=== PATIENT | male | born 1955 | race Caucasian/White ===

== ENCOUNTER 2020-05-16 11:29 | Emergency (ER) | payer MEDICARE ==
[~2020-05-16] VITALS: Ht 175 cm; Wt 86.1 kg
[2020-05-16] MEDS ORDERED: LACTATED RINGERS 1,000 ML IV ONE (11:37)
[2020-05-16] MEDS ORDERED: ASPIRIN 81 MG CHEW (CHILDREN'S ASA) PO ONE (11:45)
[2020-05-16] MEDS: NITROGLYCERIN 0.4 MG SL TABS BTL 25'S SL PRN ×3 (11:50→12:19)
[2020-05-16 11:55] LABS: BASOPHILS % (AUTO) 0 % (0-10); EOSINOPHILS # (AUTO) 0.1 10^3/uL (0.0-0.3); EOSINOPHILS % (AUTO) 0 % (0-10); HEMATOCRIT 42 % (40-54); HEMOGLOBIN 13.8 g/dL (13.3-17.7); LYMPHOCYTES # (AUTO) 1.7 10^3/uL (1.0-4.0); LYMPHOCYTES % (AUTO) 11 % (12-44); MEAN CORPUSCULAR HEMOGLOBIN 30 pg (25-34); MEAN CORPUSCULAR HGB CONC 33 g/dL (32-36); MEAN CORPUSCULAR VOLUME 89 fL (80-99); MEAN PLATELET VOLUME 9.2 fL (9.0-12.2); MONOCYTES # (AUTO) 0.8 10^3/uL (0.0-1.0); MONOCYTES % (AUTO) 5 % (0-12); NEUTROPHILS # (AUTO) 12.8 10^3/uL (1.8-7.8); NEUTROPHILS % (AUTO) 83 % (42-75); PLATELET COUNT 295 10^3/uL (130-400); WHITE BLOOD COUNT 15.5 10^3/uL (4.3-11.0)
[2020-05-16] MEDS ORDERED: ONDANSETRON 4 MG/2 ML (SDV) Z0FRAN ONE (11:55)
[2020-05-16] MEDS ORDERED: ONDANSETRON 4 MG/2 ML (SDV) Z0FRAN IVP ONE (12:00)
[2020-05-16 12:05] LABS: ALBUMIN 4.2 GM/DL (3.2-4.5); INR 1.1 (0.8-1.4); PROTHROMBIN TIME PATIENT 14.1 SEC (12.2-14.7)
[2020-05-16 12:06] LABS: CHLORIDE 101 MMOL/L (98-107); POTASSIUM 4.1 MMOL/L (3.6-5.0); SODIUM 137 MMOL/L (135-145)
[2020-05-16 12:08] LABS: GLUCOSE 263 MG/DL (70-105)
[2020-05-16 12:09] LABS: CARBON DIOXIDE 22 MMOL/L (21-32)
[2020-05-16 12:10] LABS: BILIRUBIN,TOTAL 0.5 MG/DL (0.1-1.0)
[2020-05-16 12:11] LABS: ALKALINE PHOSPHATASE 39 U/L (40-136)
[2020-05-16 12:12] LABS: CREATININE SERUM 1.08 MG/DL (0.60-1.30); GFR ESTIMATED > 60
[2020-05-16 12:13] LABS: BUN/CREATININE RATIO 24
[2020-05-16 12:14] LABS: ALANINE AMINOTRANSFERASE 25 U/L (0-55)
[2020-05-16 12:15] LABS: MAGNESIUM 1.6 MG/DL (1.6-2.4)
[2020-05-16 12:21] LABS: LYMPHOCYTES % (MANUAL) 7 %; MONOCYTES % (MANUAL) 6 %; NEUTROPHILS % (MANUAL) 87 %; RBC MORPH NORMAL
--- NOTE | 2020-05-16 12:40 | NUR ---
PPatient awake and alert, radiology in room. Pt denies any needs. Call light in reach.
[2020-05-16] MEDS ORDERED: ATOR40TA PO (12:50)
[2020-05-16] MEDS ORDERED: MULT-1136 PO (12:50)
[2020-05-16] MEDS ORDERED: FENO48TA16 PO (12:50)
[2020-05-16] MEDS ORDERED: ASPI-999 PO (12:50)
[2020-05-16] MEDS ORDERED: METF-399 PO (12:50)
[2020-05-16] MEDS ORDERED: LEVO100T PO (12:50)
[2020-05-16] MEDS ORDERED: CLOP75TA69 PO (12:50)
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
[2020-05-16] MEDS ORDERED: HEParin 1000 UNIT/ML (10ML VIAL) FOR BOLUS IV ONE (13:27)
[2020-05-16] MEDS ORDERED: morphine INJ 10 MG/ML 1ML (SYR OR VIAL) IVP STA (13:27)
[2020-05-16] MEDS ORDERED: HEParin DRIP 25000 UNIT/500ML 500 ML IV ONE (13:27)
[2020-05-16] MEDS ORDERED: NITROGLYCERIN 2% OINT 1 GM UNIT DOSE PACKET TOP ONE (13:30)
--- NOTE | 2020-05-16 13:36 | Diagnostic Imaging Report ---
PATIENT HISTORY: Chest pain. TECHNIQUE: Single frontal view of the chest. COMPARISON: None FINDINGS: The lung volumes are normal. No focal consolidation is seen. No large pleural effusion or pneumothorax is seen. The cardiomediastinal silhouette is normal in size and contour. No acute osseous abnormality is seen. IMPRESSION: No acute pulmonary abnormality seen. Dictated by: Dictated on workstation # [id number]
[2020-05-16 13:38] LABS: BILIRUBIN,URINE NEGATIVE (NEGATIVE); CLARITY,URINE CLEAR; COLOR,URINE YELLOW; GLUCOSE, URINE (UA) 3+ (NEGATIVE); KETONES,URINE 1+ (NEGATIVE); LEUKOCYTE ESTERASE ,URINE NEGATIVE (NEGATIVE); NITRITE,URINE NEGATIVE (NEGATIVE); PROTEIN,URINE NEGATIVE (NEGATIVE)
[2020-05-16 13:45] LABS: BACTERIA,URINE NEGATIVE /HPF; RBC,URINE 0-2 /HPF
--- NOTE | 2020-05-16 14:01 | NUR ---
Kalen with [facility] notified of transfer. [facility] notified and states it will be approximately 30 minutes before an ambulance is available.
--- NOTE | 2020-05-16 14:10 | NUR ---
Report called to Chip MCKEON at [facility].
--- NOTE | 2020-05-16 14:54 | NUR ---
Patient resting quietly. Waiting for EMS to transfer.
[2020-05-16 15:49] VITALS: BP 113/63
== END 2020-05-16 15:49 | disposition short-term general hospital (02) ==
LOC: ER 11:30
DX: R07.9 Chest pain, unspecified (principal); I25.10 Atherosclerotic heart disease of native coronary artery without angina pectoris; R11.0 Nausea; E11.9 Type 2 diabetes mellitus without complications; Z95.5 Presence of coronary angioplasty implant and graft; Z79.84 Long term (current) use of oral hypoglycemic drugs; Z79.82 Long term (current) use of aspirin
CPT/HCPCS: 36415; 71045; 80053; 81000; 83735; 83874; 84484; 85007; 85027; 85379; 85610; 85730; 86141; 93005; 93041